=== PATIENT | male | born 1985 | race Caucasian/White ===

== ENCOUNTER 2020-03-24 07:38 | Emergency (ER) | payer MEDICAID ==
[~2020-03-24] VITALS: Ht 170.2 cm; Wt 78.2 kg
[2020-03-24 08:52] VITALS: BP 124/64
== END 2020-03-24 08:53 | disposition home or self-care (01) ==
LOC: ED 08:22
DX: K02.9 Dental caries, unspecified (principal); R00.0 Tachycardia, unspecified; F17.210 Nicotine dependence, cigarettes, uncomplicated
CPT/HCPCS: 93005; 99283

== ENCOUNTER 2020-10-30 08:46 | Emergency (ER) | payer MEDICAID ==
[~2020-10-30] VITALS: Ht 170.2 cm; Wt 77.6 kg
[2020-10-30 08:56] VITALS: BP 154/105
--- NOTE | 2020-10-30 09:04 | NUR ---
patient arrives with a swollen left jaw from an abcess tooth and pain to left side of testicles to hernia into testicle. states he has had it for one year roughly
== END 2020-10-30 09:30 | disposition home or self-care (01) ==
LOC: ED 09:29
DX: K02.9 Dental caries, unspecified (principal); K40.91 Unilateral inguinal hernia, without obstruction or gangrene, recurrent; K08.89 Other specified disorders of teeth and supporting structures; F17.210 Nicotine dependence, cigarettes, uncomplicated
CPT/HCPCS: 99283